=== PATIENT | female | born 1955 | race Caucasian/White ===

== ENCOUNTER → 2019-07-06 | Outpatient (CLI) | payer OTHER ==
[~2019-07-06] MED LIST: ASCO500 PO; CALCAVITD PO; GLIP10 PO; LISI20 PO; METF850 PO; METO25ER PO; MULVITMINF PO; SIMV40 PO
== END | disposition home or self-care (01) ==
LOC: LAB SHORT 11:35 → LAB 11:35
DX: R30.0 Dysuria (principal)
CPT/HCPCS: 87077; 87086; 87186

== ENCOUNTER 2020-06-07 08:28 | Day surgery (SDC) | payer OTHER ==
[~2020-06-07] VITALS: Ht 167.6 cm; Wt 84.3 kg
[~2020-06-07 08:28] MED LIST changes: +ACET500 PO; +ALLERCLEAR10 MG PO; +Aspirin EC81 MG PO; +CINNAMON PO; +Calcium + Vita1 EACH PO; +Crestor40 MG PO; +FISH OIL 1,2001 EAC7 PO; +GLIM4 PO; +IBUP200 PO; +INSULIN AS100 UNIT10 SC; +METO25 PO; +MULTIPLE VITAM1 EACH PO; +PROBIOTIC
--- NOTE | 2020-06-07 10:20 | NUR ---
06/07/20 1020 Mya Shankar CASE DELAYED DUE TO PENDING COVID TEST RESULTS, PT UPDATED.
== END 2020-06-07 11:17 | disposition home or self-care (01) ==
LOC: ORSCSDS 08:28
PROVIDERS: Internal Medicine Gastroenterology
PROC: 0DBL8ZX Excision of Transverse Colon, Via Natural or Artificial Opening Endoscopic, Diagnostic (ICD-10-PCS; principal; 2020-06-07 09:45)
DX: R19.5 Other fecal abnormalities (principal); K63.5 Polyp of colon; K64.8 Other hemorrhoids; E11.9 Type 2 diabetes mellitus without complications; I10 Essential (primary) hypertension; E78.5 Hyperlipidemia, unspecified; E66.9 Obesity, unspecified; Z68.32 Body mass index [BMI] 32.0-32.9, adult; Z79.82 Long term (current) use of aspirin; Z79.4 Long term (current) use of insulin; Z79.899 Other long term (current) drug therapy
CPT/HCPCS: 82947; 88305; J2704; J7120; U0003

== ENCOUNTER → 2022-02-09 | Outpatient (CLI) | payer OTHER | END | disposition home or self-care (01) | LOC: LAB 12:44 → LAB SHORT 12:44 | DX: E11.9 Type 2 diabetes mellitus without complications (principal) | CPT/HCPCS: 82043 ==

== ENCOUNTER 2025-05-19 19:40 | Emergency (ER) | payer OTHER ==
[~2025-05-19] VITALS: Ht 167.6 cm; Wt 87.1 kg
[2025-05-19] MEDS ORDERED: Lidocaine 4% 1 Patch TOP ONE (22:35)
[2025-05-19] MEDS ORDERED: Ketorolac Tromethamine 30mg Vial IM ONE (22:35)
[2025-05-19 23:17] VITALS: BP 153/85
== END 2025-05-19 23:18 | disposition home or self-care (01) ==
LOC: ER 19:40
DX: S23.41XA Sprain of ribs, initial encounter (principal); E11.9 Type 2 diabetes mellitus without complications; Z88.2 Allergy status to sulfonamides; Z88.8 Allergy status to other drugs, medicaments and biological substances; Z91.030 Bee allergy status; Z79.4 Long term (current) use of insulin; Z79.899 Other long term (current) drug therapy; Z79.82 Long term (current) use of aspirin; Z90.49 Acquired absence of other specified parts of digestive tract; X50.9XXA Other and unspecified overexertion or strenuous movements or postures, initial encounter
CPT/HCPCS: 71100; A9270; J1885